=== PATIENT | male | born 1995 | race Caucasian/White ===

== ENCOUNTER 2024-01-03 00:47 | Emergency (ER) | payer OTHER ==
[~2024-01-03] VITALS: Ht 182.9 cm; Wt 90.0 kg
[2024-01-03 01:11] VITALS: BP 127/83
== END 2024-01-03 01:11 | disposition other institution, planned readmission (95) ==
LOC: ED 00:47
DX: R41.82 Altered mental status, unspecified (principal); Z53.29 Procedure and treatment not carried out because of patient's decision for other reasons
CPT/HCPCS: 80053; 80307; 85025; 99283

== ENCOUNTER 2024-01-06 11:45 | Emergency (ER) | payer OTHER ==
[~2024-01-06] VITALS: Ht 182.9 cm; Wt 86.0 kg
--- OUTSIDE RECORDS SUMMARY | 2024-01-06 11:51 | XMS ---
PreManage Notification: [employer] Analyst Events No recent Security Events currently on file CRITERIA MET - [facility] - 2 Visits in 30 Days CARE PROVIDERS There are no care providers on record at this time. Ericka has no Care Guidelines for this patient. [place] V[facility] (12 MO.) [facility] NOTE: Visits indicate total known visits. ED[facility] [place] (12 MO.) 01/06/2024 11:[address] [facility] [place] TYPE: Emergency COMPLAINT: - SUICIDE ATTEMPT 01/03/2024 00:48 [facility] TYPE: Emergency COMPLAINT: - MEDICAL DIAGNOSES: - Altered mental status, unspecified - Procedure and treatment not carried out because of patient's decision for other reasons INPATIENT VISIT TRACKING (12 MO.) No inpatient visits to display in this time frame [email or web address]
[2024-01-06] MEDS ORDERED: GEODON20 MG PO (11:55)
[2024-01-06] MEDS ORDERED: HYDROXYZINE HCL25 MG PO (11:56)
[2024-01-06] MEDS ORDERED: hydrOXYzine pamoate 25 MG CAP PO ONE (12:00)
[2024-01-06 12:06] LABS: BASOPHILS 1.1 % (0-2); EOSINOPHILS 1.9 % (0-6); HEMATOCRIT 47.5 % (35.0-50.0); LYMPHOCYTES 39.2 % (24-44); MCH 31.9 (27-36); MCHC 35.8 g/dl (30-36); MCV 89.1 fl (81-99); MONOCYTES 6.6 % (0-12); NEUTROPHILS 51.2 % (39-80); PLATELET COUNT 179 K/uL (140-440); RBC 5.33 M/ul (4.3-5.7); RDW 13.2 (10.5-15.0)
[2024-01-06 12:20] LABS: ALBUMIN 4.1 g/dL (3.4-5.0); ALBUMIN/GLOBULIN RATIO 1.28 (1.1-2.4); ANION GAP 10.5 (7-21); BILIRUBIN, TOTAL 1.5 ng/dL (0.2-1.0); BUN/CREATININE RATIO 15.88 (6.0-28.6); CALCIUM 9.1 mg/dL (8.5-10.1); CREATININE, SERUM 1.07 mg/dL (0.70-1.30); POTASSIUM 4.5 mmol/L (3.5-5.1); PROTEIN, TOTAL 7.3 g/dL (6.4-8.2)
[2024-01-06 13:34] VITALS: BP 137/91
== END 2024-01-06 13:34 | disposition home or self-care (01) ==
LOC: ED 11:45
PROVIDERS: Emergency Medicine
DX: T14.91XA Suicide attempt, initial encounter (principal); I10 Essential (primary) hypertension; X83.8XXA Intentional self-harm by other specified means, initial encounter; J45.909 Unspecified asthma, uncomplicated; Z79.899 Other long term (current) drug therapy
CPT/HCPCS: 36415; 80053; 85025; 99285; Q0177